=== PATIENT | female | born 1965 | race Caucasian/White ===

== ENCOUNTER 2017-04-16 18:08 | Emergency (ER) | payer OTHER ==
[~2017-04-16] VITALS: Ht 172.7 cm; Wt 84.4 kg
[~2017-04-16 18:08] MED LIST: ACCUPRIL20 MG PO; ALEVE220 MG PO; ALLEGRA ALLERG180 MG PO; FIORICET 50-301 EACH PO; FLONASE16 G1 BOTH NARES; LEVOTHYROXINE; NASONEX17 GM BOTH NARES; RABEPRAZOLE SOD20 MG PO; SYNTHROID100 MCG PO; VITAMIN B-6100 MG PO
[2017-04-16 18:18] VITALS: BP 136/104
[2017-04-16] MEDS ORDERED: MOTRIN600 MG PO (19:34)
== END 2017-04-16 20:23 | disposition home or self-care (01) ==
LOC: EME 18:08
DX: S20.219A Contusion of unspecified front wall of thorax, initial encounter (principal); W22.09XA Striking against other stationary object, initial encounter; Y93.02 Activity, running; Y99.0 Civilian activity done for income or pay
CPT/HCPCS: 71010; 99281; 99283